=== PATIENT | female | born 1970 | race Caucasian/White ===

== ENCOUNTER 2016-12-07 16:05 | Inpatient (IN) | payer OTHER ==
[2016-12-07] MEDS ORDERED: Albuterol/Ipratropium Neb 3 ML NEB NEB ONE ×2 (16:33→20:09)
[2016-12-07] MEDS ORDERED: SODIUM CHLORIDE 0.9% 3 ML FLUSH FLUSH PRN (16:33)
[2016-12-07] MEDS ORDERED: METHYLPREDNISOLONE 125 MG/2 ML VIAL IV ONE (16:33)
--- NOTE | 2016-12-07 17:05 | EDPRACDOC ---
- General Information Information Source: Patient - History of Present Illness Onset: 1 WK HPI: PT WITH ASTHMA PRESENTS TO ED WITH INCREASE SOB WHEEZING AND COUGH. STATES IS CURRENTLY ON PREDNISONE BUT DOES NOT SEEM TO BE GETTING ANY BETTER. PT ALSO STATES SHE IS HAVING SOME RIGHT SIDED CHEST PAIN THAT RADIATES INTO HER BACK. Shortness of Breath: Mild Relevant History: Reports: Asthma Cough: Reports: Non-productive Rhinorrhea: Reports: None Ear Symptoms: Reports: None SOB Worsens with: Reports: Coughing SOB Improves with: Reports: Nothing Associated Signs and symptoms: Reports: Cough, Other (WHEEZING ) <Connie Barbosa - Last Filed: 12/07/16 18:10> <Danyelle Moss - Last Filed: 12/07/16 21:17> - General Information Chief Complaint: Dyspnea/Resp distress Stated Complaint: DIFFICULTY BREATHING Time Seen by Provider: 12/07/16 16:32 Home Medications: Home Medications Albuterol/Ipratropium Neb [Duoneb] 3 ml NEB Q6H PRN #1 box 01/11/15 Omeprazole [Prilosec] 20 mg PO DAILY 06/20/15 Albuterol Sulfate [Proventil Hfa] 2 puff INH Q2H PRN #1 inhaler 07/28/15 Fluticasone Propionate [Flovent Hfa-110] 2 puff INH RTBID #1 inhaler 07/28/15 Ipratropium/Albuterol Sulfate [Combivent Respimat] 1 puff INH RTQ6 #1 inhaler Prednisone [Sterapred DS 10 mg/12 day pack] 48 tab PO DIR #1 pack 09/03/15 Allergies/Adverse Reactions: Allergies Allergy/AdvReac Type Severity Reaction Status Date / Time Sulfa (Sulfonamide Allergy Hives* Verified 12/07/16 16:10 Antibiotics) ED Past Medical History - History Reviewed Yes Nurses notes reviewed and agree except as marked Travel Outside of [place] in the Last 3 Months?: No - Patient Medical History Cardiac History: Reports: Heart Attack (7yrs ago) Respiratory History: Reports: Asthma, COPD (possible diagnosis.), Pneumonia GI/ History: Reports: Gastroesophageal Reflux (Irritable bowel. Mild gastritis EGD 2005. Dr. Alan.). Denies: Ulcer, Diverticulosis (Colonoscopy 2004: polyps removed. Dr. Alan.) Psychological History: Denies: Depression, Substance Use Disorder Systemic History: Reports: Cancer (Melanoma in past.) Surgical History: Reports: Other (Tubal ligation. Colonoscopy and EGD by Dr. Alan.). Denies: Hysterectomy - Family Medical History Reports: Diabetes (MGM, brother), Cancer (Father: prostate. MGM: breast cancer) , Cardiac Disorders (DAD), Respiratory Disorders (Brother: COPD, smoker, on home vent now.) - Social Medical History Smoking Status: Heavy tobacco smoker (5 or more cigarettes/day or daily pipe/ cigar) Social History: Denies: Substance Use Disorder ETOH: None Substance Abuse: None Lives With: Other Lives In: Home <Connie Barbosa - Last Filed: 12/07/16 18:10> EDM Review of Systems - Review of Systems ROS Negative Except as Marked: Yes All systems reviewed and were negative except as marked Respiratory: Cough, Shortness of Breath, Wheezing <Connie Barbosa - Last Filed: 12/07/16 18:10> - Physical Exam Constitutional: No apparent distress, Alert (Awake) Oriented to: Time, Person, Place Last recorded Vital Signs: Last Vital Signs Temp 98.2 F 12/07/16 16:07 Pulse 95 12/07/16 16:10 Resp 18 12/07/16 16:26 BP 105/72 12/07/16 16:10 Pulse Ox 95 12/07/16 16:10 Oxygen Pulse Oxygen Saturation 95 O2 Device Room Air Oxygen Flow Rate Fraction of Inspired Oxygen ( FIO2) - HEENT Head: Normal ( normocephalic) Eye Exam: Normal (PERRL, EOMI, Sclera white) Oropharynx: Normal (Pharynx:Moist without exudate,Gums-no swelling) Tympanic Membrane: Normal ENT EAC: Normal TMJ: Normal Nose: No Symptoms Reported (septum midline) Neck: Normal (FROM, trachea at midline) - Respiratory/Cardiovascular Respiratory: Diminished, Wheezes (BILATERAL) Cardiovascular: Tachycardia - GI Auscultation: Normal (NABS) Palpation: Normal (Soft,No rebound or guarding, non distended) Tenderness: Non tender Owens's Sign: Negative - Bladder: Normal - Musculoskeletal Back: Normal (Non-Tender) Extremities: Normal (Normal tone, Pulses 2+ No cyanosis or edema, FROM) - Integumentary Skin: Normal, Warm, Dry Lymphatics: Normal (no adenopathy) - Neurologic Memory Impaired: Normal Motor Function: Normal (Normal tone, Pulses 2+ No cyanosis or edema, FROM) Cranial Nerve: Normal (CN II-X11 intact sensation, strength 5/5) Cerebellar: Normal Mood Description: Normal Thought: Coherent Perception: Normal <Connie Barbosa - Last Filed: 12/07/16 18:10> - Physical Exam Last recorded Vital Signs: Last Vital Signs Temp 98.2 F 12/07/16 16:07 Pulse 95 12/07/16 16:10 Resp 18 12/07/16 16:26 BP 105/72 12/07/16 16:10 Pulse Ox 95 12/07/16 16:10 Oxygen Pulse Oxygen Saturation 95 O2 Device Room Air Oxygen Flow Rate Fraction of Inspired Oxygen ( FIO2) <Danyelle Moss - Last Filed: 12/07/16 21:17> ED SOB MDM - Differential Diagnosis Differential Diagnosis: Asthma, Pnuemonia, Other (BRONCHITIS) - Results Result Diagrams: 12/07/16 17:00 12/07/16 17:00 - Diagnostic Imaging CXR Image interpreted by: MLP Diagnostic Imaging Comments: SUSPECTED RIGHT SIDED PNEUMOTHORAX APPROX 20-30%. <Connie Barbosa - Last Filed: 12/07/16 18:10> - Re-evaluation Re-evaluation 2 Re-evaluation Time: 18:36 Re-evaluation: CURRENTLY ON 6L NC. PT DOING WELL, NO SIGNIF PAIN, NO RESP DISTRESS. Temperature: 98.2 F (12/07/16 16:07) HR: 95 (12/07/16 16:10)RR: 18 (12/07/16 16: 26) BP: 105/72 (12/07/16 16:10)Pulse Ox: 95 (12/07/16 16:10) - Results Result Diagrams: 12/07/16 17:00 12/07/16 17:00 Results: WBC 13.6 xk/uL (3.8-10.8) H 12/07/16 17:00 RBC 5.11 xM/uL (4.20-5.40) 12/07/16 17:00 Hgb 15.3 g/dL (12.0-16.0) 12/07/16 17:00 Hct 45.6 % (36-47) 12/07/16 17:00 MCV 89 fL (81-99) 12/07/16 17:00 MCH 29.9 pg (27-32) 12/07/16 17:00 MCHC 33.5 g/dl (33-36) 12/07/16 17:00 RDW 13.9 % (11.5-14.5) 12/07/16 17:00 Plt Count 480 xk/uL (130-400) H 12/07/16 17:00 MPV 7.7 fL (7.4-10.4) 12/07/16 17:00 Sodium 141 mEq/L (137-146) 12/07/16 17:00 Potassium 3.8 mEq/L (3.5-5.1) 12/07/16 17:00 Chloride 107 mEq/L (98-107) 12/07/16 17:00 Carbon Dioxide 26 mMOL/L (22-33) 12/07/16 17:00 Anion Gap 12 mEq/L (8-16) 12/07/16 17:00 BUN 14 MG/DL (7-17) 12/07/16 17:00 Creatinine 0.60 MG/DL (0.52-1.04) 12/07/16 17:00 Estimated GFR (MDRD) > 60 mL/min (>=60) 12/07/16 17:00 Glucose 126 mg/dL (70-99) H 12/07/16 17:00 Calculated Osmolality 274 MOs/Kg (270-290) 12/07/16 17:00 Calcium 9.9 MG/DL (8.4-10.2) 12/07/16 17:00 Corrected Calcium 10.0 MG/DL (8.4-10.2) 12/07/16 17:00 Total Bilirubin 0.8 MG/DL (0.2-1.3) 12/07/16 17:00 AST 16 IU/L (14-36) 12/07/16 17:00 ALT 29 IU/L (9-52) 12/07/16 17:00 Alkaline Phosphatase 95 IU/L (38-126) 12/07/16 17:00 Total Protein 7.2 G/DL (6.3-8.2) 12/07/16 17:00 Albumin 3.9 G/DL (3.5-5.0) 12/07/16 17:00 Urine Color Yellow 12/07/16 16:13 Urine Clarity Sl cldy 12/07/16 16:13 Urine pH 8.0 (5.0-8.0) 12/07/16 16:13 Ur Specific [place] 1.005 (1.003-1.035) 12/07/16 16:13 Urine Protein Neg (NEG/TRACE) 12/07/16 16:13 Urine Glucose (UA) Neg (NEGATIVE) 12/07/16 16:13 Urine Ketones Neg (NEGATIVE) 12/07/16 16:13 Urine Occult Blood Neg (NEG/TRACE) 12/07/16 16:13 Urine Nitrite Neg (NEGATIVE) 12/07/16 16:13 Urine Bilirubin Neg (NEGATIVE) 12/07/16 16:13 Urine Urobilinogen <2.0 MG/DL (0-1) 12/07/16 16:13 Ur Leukocyte Esterase Neg (NEGATIVE) 12/07/16 16:13 Urine RBC 0-2 (0-5) 12/07/16 16:13 Urine WBC 2-5 (0-5) 12/07/16 16:13 Ur Epithelial Cells 3+ 12/07/16 16:13 Urine Bacteria Few (NEG/FEW) 12/07/16 16:13 Lab Results 12/07/16 12/07/16 12/07/16 17:00 17:00 16:13 WBC 13.6 H RBC 5.11 Hgb 15.3 Hct 45.6 MCV 89 MCH 29.9 MCHC 33.5 RDW 13.9 Plt Count 480 H MPV 7.7 Sodium 141 Potassium 3.8 Chloride 107 Carbon Dioxide 26 Anion Gap 12 BUN 14 Creatinine 0.60 Estimated GFR (MDRD) > 60 Glucose 126 H Calculated Osmolality 274 Calcium 9.9 Corrected Calcium 10.0 Total Bilirubin 0.8 AST 16 ALT 29 Alkaline Phosphatase 95 Total Protein 7.2 Albumin 3.9 Urine Color Yellow Urine Clarity Sl cldy Urine pH 8.0 Ur Specific [place] 1.005 Urine Protein Neg Urine Glucose (UA) Neg Urine Ketones Neg Urine Occult Blood Neg Urine Nitrite Neg Urine Bilirubin Neg Urine Urobilinogen <2.0 Ur Leukocyte Esterase Neg Urine RBC 0-2 Urine WBC 2-5 Ur Epithelial Cells 3+ Urine Bacteria Few <Danyelle Moss N - Last Filed: 12/07/16 21:17> <Connie Barbosa - Last Filed: 12/07/16 18:10> - Departure Education/Counseling Given To: Patient, Family Member Education/Counseling Given Regarding: Diagnosis, Treatment, Prognosis - Physician Consulted Surgery Time Called: 18:34 Provider Called: Yousif Peres Time [place] Returned Call: 18:34 (WE AGREE, PT STABLE CURRENTLY. WILL GET CT CHEST FOR FURTHER EVAL, CONSIDER MANAGEMENT NONOPERATIVE) <MossDanyelle - Last Filed: 12/07/16 21:17> - Departure Final Diagnosis: Spontaneous pneumothorax Instructions: Spontaneous Pneumothorax (ED) Referrals: Inna Johnson MD [Primary Care Provider] - One Week Prescriptions: No Action Albuterol/Ipratropium Neb [Duoneb] 3 ml NEB Q6H PRN #1 box PRN Reason: Shortness Of Breath Omeprazole [Prilosec] 20 mg PO DAILY Ipratropium/Albuterol Sulfate [Combivent Respimat] 1 puff INH RTQ6 #1 inhaler Fluticasone Propionate [Flovent Hfa-110] 2 puff INH RTBID #1 inhaler Albuterol Sulfate [Proventil Hfa] 2 puff INH Q2H PRN #1 inhaler PRN Reason: Wheezing Prednisone [Sterapred DS 10 mg/12 day pack] 48 tab PO DIR #1 pack ED-Moderate Sedation Procedure - Procedure Indication: TUBE THORACOSTOMY Informed of risks, benefits and alternatives described.: Yes Informed Consent Signed: Written ASA Status: 2 (ASTHMA, MILD TO MOD LEVEL) Physician Performing Procedure: Yes Physician Providing Sedation: Ajay - Patient Information Patient Age: 46 History and Physical Completed: Yes - Oxygen Oxygen Delivery Method: Nasal Cannula - Chemical Engineering Technologist Chemical Engineering Technologist: Yes EKG Rhythm: Sinus Rhythm - Medications Dose #1 Administration Time: 20:40 Medication Given: Versed Dose Given: 4 Medication Unit: mg Route: IV Patient Reaction: Awake Dose #2 Administration Time: 20:45 Medication Given: Ketamine Dose Given: 85 Medication Unit: mg Route: IV Patient Reaction: Awake Dose #3 Administration Time: 20:50 Medication Given: Fentanyl Dose Given: 100 Medication Unit: mcg Route: IV Patient Reaction: Arousable to Voice Dose #4 Administration Time: 20:48 Medication Given: Versed Dose Given: 4 Medication Unit: mg Route: IV Patient Reaction: Arousable to Voice Dose #5 Administration Time: 20:52 Medication Given: Versed Dose Given: 4 Medication Unit: mg Route: IV Patient Reaction: Arousable to Voice, Arousable to Touch - Last Dose of Medication Last Medication Time: 20:52 Nurse Notes: CHEST XRAY COMPLETE FOR TUBE PLACEMENT, DR STRICKLAND AT BS TO VERIFY, CHEST TUBE PLACE ON SUCTION AT 20 - Assessment Skin: Warm Abdomen: Soft Side Rails Up x 2: Yes <Danyelle Moss N - Last Filed: 12/07/16 21:17>
[2016-12-07 17:09] LABS: LEUKOCYTES/URINE NEG (NEGATIVE); NITRITE/URINE NEG (NEGATIVE); RBC/URINE 0-2 (0-5); URINE OCCULT BLOOD NEG (NEG/TRACE)
[2016-12-07 17:11] LABS: MPV 7.7 fL (7.4-10.4)
[2016-12-07 17:20] LABS: BLOOD UREA NITROGEN 14 MG/DL (7-17); CALCIUM 9.9 MG/DL (8.4-10.2); CALCULATED OSMOLALITY 274 MOs/Kg (270-290); CHLORIDE 107 mEq/L (98-107); GLUCOSE 126 mg/dL (70-99); SODIUM LEVEL 141 mEq/L (137-146); TOTAL PROTEIN 7.2 G/DL (6.3-8.2)
--- NOTE | 2016-12-07 18:04 | DIRPT ---
CLINICAL DATA: Cough, short of breath, and wheezing EXAM: CHEST 2 VIEW COMPARISON: Radiograph 11/29/2016 FINDINGS: Normal cardiac silhouette. There is a a moderate size RIGHT pneumothorax along the RIGHT lateral chest wall. The pneumothorax involves approximately 30% of the hemithorax volume. The the RIGHT heart border is not as prominent as comparison radiograph which could indicate a component of tension pneumothorax. The trachea is midline and not shifted. LEFT lung is clear. IMPRESSION: Moderate size RIGHT pneumothorax. Cannot exclude a mild component of tension. Critical Value/emergent results were called by telephone at the time of interpretation on 12/07/2016 at 6:[address] Connie ARRINGTON, who verbally acknowledged these results. Electronically Signed By: Ras Radford M.D. On: 12/07/2016 18:01
[2016-12-07] MEDS ORDERED: LORAZEPAM 2 MG/ML VIAL IV ONE (18:47)
[2016-12-07] MEDS ORDERED: MIDAZOLAM 5 MG/5 ML VIAL ONE (19:22)
[2016-12-07] MEDS ORDERED: FENTANYL 100 MCG/2 ML VIAL ONE (19:22)
[2016-12-07] MEDS ORDERED: KETAMINE 50 MG/ML SYRINGE ONE (19:23)
[2016-12-07] MEDS ORDERED: NALOXONE 2 MG/2 ML SYRINGE ONE (19:24)
[2016-12-07] MEDS ORDERED: Lidocaine 2%-Epinephrine 1:100,000 20ml vial ONE (19:24)
[2016-12-07] MEDS ORDERED: FLUMAZENIL 0.1 MG/ML INJ 5 ML VIAL IV ONE (19:24)
[2016-12-07 19:31] LABS: SEG NEUTROPHIL 85 % (45-76)
--- NOTE | 2016-12-07 19:59 | DIRPT ---
CLINICAL DATA: Evaluate pneumothorax. Shortness of breath for 3 weeks. Follow-up chest x-ray. History of melanoma in 1997. EXAM: CT CHEST WITHOUT CONTRAST TECHNIQUE: Multidetector CT imaging of the chest was performed following the standard protocol without IV contrast. COMPARISON: Chest x-ray 12/07/2016 FINDINGS: Heart: Heart size is normal. No imaged pericardial effusion or significant coronary artery calcifications. Vascular structures: There is mild atherosclerotic calcification of the thoracic aorta. No aneurysm. Mediastinum/thyroid: The visualized portion of the thyroid gland has a normal appearance. No mediastinal, hilar, or axillary adenopathy. Lungs/Airways: Large right-sided pneumothorax again identified. There is mediastinal shift towards the left. Small pleural based plaque is identified at the right hemidiaphragm, measuring 8 mm. There is minimal posterior right lung atelectasis. No suspicious parenchymal nodules identified. There are no pleural effusions. No pulmonary edema or consolidations. Anterior to the right upper lobe there is and air cyst measuring 7.1 cm. Upper abdomen: Gallbladder is present. Chest wall/osseous structures: No suspicious lytic or blastic lesions are identified. IMPRESSION: 1. Right pneumothorax with tension component, shifting the mediastinum towards the left. Pneumothorax estimated to be approximately 50% of lung volume. 2. Single right basilar pleural based plaque or nodule measuring 8 mm. This may represent artifact above the pneumothorax. Followup is recommended. 3. Air cyst in the right pleural space. Critical Value/emergent results were called by telephone at the time of interpretation on 12/07/2016 at 7:[address] FINA FITZGERALD MD, who verbally acknowledged these results. Electronically Signed By: Ashley Baez M.D. On: 12/07/2016 19:56
[2016-12-07] MEDS ORDERED: ALBUTEROL 6.7 GM MDI INH PRN (21:04)
[2016-12-07] MEDS ORDERED: Albuterol/Ipratropium Neb 3 ML NEB NEB PRN (21:04)
--- NOTE | 2016-12-07 21:07 | HISTPHYS ---
- Chief Complaint shortness of breath - History of Present Illness This is a 46 year old female with a history of asthma. She developed shortness of breath and subsequently went to the emergency department. CT scan of the chest demonstrated a right sided pneumothorax. - Medical History Cardiac History: Reports: Heart Attack (7yrs ago) Respiratory History: Reports: Asthma, COPD (possible diagnosis.), Pneumonia GI/ History: Reports: Gastroesophageal Reflux (Irritable bowel. Mild gastritis EGD 2005. Dr. Alan.). Denies: Ulcer, Diverticulosis (Colonoscopy 2004: polyps removed. Dr. Alan.) Systemic History: Reports: Cancer (Melanoma in past.) Psychological History: Denies: Depression, Substance Use Disorder - Surgical History Reports: Other (Tubal ligation. Colonoscopy and EGD by Dr. Alan.). Denies: Hysterectomy - Medictions/Allergies Allergies Sulfa (Sulfonamide Antibiotics) Allergy (Verified 12/07/16 16:10) Hives* Home Medications Albuterol/Ipratropium Neb [Duoneb] 3 ml NEB Q6H PRN #1 box 01/11/15 Omeprazole [Prilosec] 20 mg PO DAILY 06/20/15 Albuterol Sulfate [Proventil Hfa] 2 puff INH Q2H PRN #1 inhaler 07/28/15 Fluticasone Propionate [Flovent Hfa-110] 2 puff INH RTBID #1 inhaler 07/28/15 Ipratropium/Albuterol Sulfate [Combivent Respimat] 1 puff INH RTQ6 #1 inhaler Prednisone [Sterapred DS 10 mg/12 day pack] 48 tab PO DIR #1 pack 09/03/15 - Family History Reports: Diabetes (MGM, brother), Cancer (Father: prostate. MGM: breast cancer) , Cardiac Disorders (DAD), Respiratory Disorders (Brother: COPD, smoker, on home vent now.) - Social History Travel Outside of [place] in the Last 3 Months?: No Lives: With Family Smoking Status: Heavy tobacco smoker (5 or more cigarettes/day or daily pipe/ cigar) (The patient reports smoker for thirty years.) Social History: Denies: Amphetamine Use, Alcohol Use, Barbiturate Use, Benzodiazipine Use, Cocaine Use, Heroin Use, Marijuana Use, Methadone Use, MDMA (Ecstasy) Use, Substance Use Disorder - Review of Systems Yes All systems reviewed and were negative except as marked (twelve systems reviewed with the patient.) - Physical Exam Vital Signs: Initial Vitals Temperature 98.2 F 12/07/16 16:07 Pulse Rate 102 12/07/16 16:07 Respiratory Rate 18 12/07/16 16:07 Blood Pressure 154/79 12/07/16 16:07 Pulse Oxygen Saturation 96 12/07/16 16:07 Constitutional: Alert (Awake, Fully oriented. Normal and appropriate affect.Well appearing. Well nourished.), No apparent distress Oriented to: Time, Person, Place - HEENT Head: Normal (normocephalic, atraumatic.), Other (No cervical lymphadenopathy. No supraclavicular lymphadenopathy. Neck: No palpable mass, supple , trachea midline.) Eye: Normal (pupils equal, reactive to light, and round; EOMI, Sclera white) Oropharynx: Normal (Pharynx: Moist without exudate,Gums-no swelling, No oropharyngeal lesions or erythema, Mucous membranes are dry.) Tympanic Membrane: Normal (no discharge) ENT EAC: Normal (No oropharyngeal lesions or erythema. Mucous membranes are dry. ) TMJ: Normal Nose: No Symptoms Reported (septum midline, Nares patent, without discharge or bleeding.) Respiratory: Diminished (Markedly diminished on the right.), Wheezes ( Expiratory wheezes noted on the left.) Cardiovascular: Normal (RRR , Normal S1, S2. No murmurs, rubs, or gallops. PMI non-displaced. Carotids: no carotid bruits. No bradycardia or tachycardia. DP pulses 2+ bilaterally.) - GI Auscultation: Normal Palpation: Normal (Soft,non distended,nontender. No hepatosplenomegaly.) Tenderness: Non tender (No rebound or guarding) Owens's Sign: Negative Rectal Exam: Deferred - Musculoskeletal Back: Normal (Non-Tender) Extremities: Normal (Normal tone, DP pulses 2+ bilaterally, No cyanosis or edema bilaterally, FROM bilaterally.) - Integumentary Skin: Normal (Clean, dry, and intact. No rashes. No lesions.) Lymphatics: Normal (No cervical lymphadenopathy. No supraclavicular lymphadenopathy.) - Neurologic Memory Impaired: Normal Motor Function: Normal (Motor 5/5 throughout.Normal tone, Pulses 2+ No cyanosis or edema, FROM) Cranial Nerve: Normal (CN II-XII intact sensation, strength 5/5) Cerebellar: Normal (Babinski: toes downgoing bilaterally. Intact Finger to nose. Sensory grossly intact to light touch. Intact rapid alternating movements bilaterally. No pronator drift.) Mood Description: Normal (Fully oriented. Normal and appropriate affect.) Perception: Normal (Normal and appropriate affect.) - Lab Results 12/07/16 17:00 12/07/16 17:00 - Diagnostic Findings Final Report CLINICAL DATA: Evaluate pneumothorax. Shortness of breath for 3 weeks. Follow-up chest x-ray. History of melanoma in 1997. EXAM: CT CHEST WITHOUT CONTRAST TECHNIQUE: Multidetector CT imaging of the chest was performed following the standard protocol without IV contrast. COMPARISON: Chest x-ray 12/07/2016 FINDINGS: Heart: Heart size is normal. No imaged pericardial effusion or significant coronary artery calcifications. Vascular structures: There is mild atherosclerotic calcification of the thoracic aorta. No aneurysm. Mediastinum/thyroid: The visualized portion of the thyroid gland has a normal appearance. No mediastinal, hilar, or axillary adenopathy. Lungs/Airways: Large right-sided pneumothorax again identified. There is mediastinal shift towards the left. Small pleural based plaque is identified at the right hemidiaphragm, measuring 8 mm. There is minimal posterior right lung atelectasis. No suspicious parenchymal nodules identified. There are no pleural effusions. No pulmonary edema or consolidations. Anterior to the right upper lobe there is and air cyst measuring 7.1 cm. Upper abdomen: Gallbladder is present. Chest wall/osseous structures: No suspicious lytic or blastic lesions are identified. IMPRESSION: 1. Right pneumothorax with tension component, shifting the mediastinum towards the left. Pneumothorax estimated to be approximately 50% of lung volume. 2. Single right basilar pleural based plaque or nodule measuring 8 mm. This may represent artifact above the pneumothorax. Followup is recommended. 3. Air cyst in the right pleural space. Critical Value/emergent results were called by telephone at the time of interpretation on 12/07/2016 at 7:[address] FINA FITZGERALD MD, who verbally acknowledged these results. Electronically Signed By: Ashley Baez M.D. On: 12/07/2016 19:56 - Assessment/Plan (1) Spontaneous pneumothorax J93.83 - OTHER PNEUMOTHORAX Acute Present on Admission: Yes Comment: We will plan for right tube thoracostomy. The indications, benefits and risks associated with the procedure were discussed with the patient. All questions were answered. Informed consent was obtained. (2) Tobacco abuse Z72.0 - TOBACCO USE Chronic Present on Admission: Yes Comment: Tobacco cessation was recommended. (3) COPD exacerbation J44.1 - CHRONIC OBSTRUCTIVE PULMONARY DISEASE W (ACUTE) EXACERBATION Chronic Present on Admission: Yes Comment: The patient will be started on home medications and carefully monitored. Case Care Discussed with: Patient
--- NOTE | 2016-12-07 21:08 | DIRPT ---
CLINICAL DATA: Chest tube placement. EXAM: PORTABLE CHEST 1 VIEW COMPARISON: 12/07/2016 FINDINGS: Right-sided chest tube has been placed. Right-sided pneumothorax is significantly decreased. Small basilar component is suspected. There is minimal right lower lobe atelectasis. Mediastinum is now midline. There is minimal left base atelectasis. Small amount of subcutaneous gas identified. IMPRESSION: 1. Interval placement of right-sided chest tube. 2. Significantly smaller right-sided pneumothorax. 3. Bibasilar opacities. Electronically Signed By: Ashley Baez M.D. On: 12/07/2016 21:05
[2016-12-07] MEDS ORDERED: SIMETHICONE 80 MG TAB PO PRN (21:13)
[2016-12-07] MEDS ORDERED: IBUPROFEN 600 MG TAB PO PRN (21:13)
[2016-12-07] MEDS ORDERED: ACETAMINOPHEN 650 MG SUPP PR PRN (21:13)
[2016-12-07] MEDS ORDERED: PROMETHAZINE 25 MG/ML VIAL IV PRN (21:13)
[2016-12-07] MEDS ORDERED: ONDANSETRON HCL 4 MG/2 ML VIAL IV PRN (21:13)
[2016-12-07] MEDS ORDERED: ACETAMINOPHEN 325 MG/TAB TABLET PO PRN (21:13)
[2016-12-07] MEDS ORDERED: DIPHENHYDRAMINE 25 MG CAP PO PRN (21:13)
--- NOTE | 2016-12-07 21:13 | HIMOPRPT ---
DATE OF PROCEDURE: 12/07/16 PREOPERATIVE DIAGNOSIS: Right Spontaneous pneumothorax POSTOPERATIVE DIAGNOSIS: Right Spontaneous pneumothorax PROCEDURE: Insertion of 24-Algerian tube thoracostomy to 10 cm. SURGEON: Yousif Peres DO. ANESTHESIA: Intravenous sedation per Dr. Moss in the emergency department and 1% lidocaine local anesthesia. DRAINS: 24 marshallese right tube thoracostomy COMPLICATIONS: None PATIENT CONDITION: Stable ESTIMATED BLOOD LOSS: 1 ml. INDICATIONS: This is a 46-year-old F with spontaneous pneumothorax, requiring a tube thoracostomy. Risks were discussed include, but not limited to bleeding, infection, tube migration, need for emergent thoracotomy possibly at [facility]. All questions were answered and informed consent was obtained FINDINGS: Stat portable chest x-ray postprocedure shows the right tube thoracostomy in excellent position at the apex of lung with near complete resolution of the pneumothorax. PROCEDURE IN DETAIL: SAMMY JOLLEY was placed in modified seated position, with slightly recumbent and head of the bed approximately at 35 degrees angle elevated. The chest was then sterilely prepped and draped in usual fashion and infiltrated with local anesthetic. Transverse incision was made at the 7th intercostal space, and the 24-Algerian chest tube was tunneled over the 5th intercostal space, and advanced with no resistance. It was sewn in with 0 silk suture ligature x 2. Dressing was applied. Stat chest x-ray was obtained with findings as described above. The patient was placed back in seated position. Vital signs were stable.
[2016-12-07] MEDS ORDERED: Cefazolin 2gm/50 ml D5W 2 GM/50 ML RTU IV ONE (22:00)
[2016-12-07] MEDS ORDERED: PREDNISONE 10 MG PO SCH ×2 (22:00)
[2016-12-07] MEDS: SODIUM CHLORIDE 0.9% 3 ML FLUSH FLUSH SCH (22:50)
[2016-12-07] MEDS: LR 1,000 ML IV SCH (22:52)
[2016-12-07] MEDS: HYDROmorphone 50 ML IV PRN (23:00)
[2016-12-07] MEDS ORDERED: Vaccine Screening Complete SCH (23:00)
[2016-12-07] MEDS: PREDNISONE 10 MG PO SCH (23:17)
[2016-12-07] MEDS: NICOTINE 14 MG PATCH TOP SCH (23:19)
[2016-12-08] MEDS: Albuterol/Ipratropium Neb 3 ML NEB NEB SCH ×4 (01:28→19:37)
[2016-12-08] MEDS ORDERED: [UNRECOGNIZED DRUG - OTHER] INH SCH (02:00)
[2016-12-08] MEDS ORDERED: ALBUTEROL SULFATE INH SCH (02:00)
[2016-12-08] MEDS ORDERED: IPRATROPIUM INH SCH (02:00)
[2016-12-08] MEDS: SODIUM CHLORIDE 0.9% 3 ML FLUSH FLUSH SCH ×2 (03:07→12:56)
[2016-12-08] MEDS: PANTOPRAZOLE 40 MG TAB PO SCH (04:08)
[2016-12-08] MEDS: BUDESONIDE 0.5 MG NEB NEB SCH ×2 (06:27→19:38)
[2016-12-08] MEDS: PREDNISONE 10 MG PO SCH ×4 (07:48→22:04)
[2016-12-08] MEDS ORDERED: FLUTICASONE INH SCH (08:00)
--- NOTE | 2016-12-08 08:10 | DIRPT ---
CLINICAL DATA: RIGHT-sided chest tube EXAM: PORTABLE CHEST 1 VIEW COMPARISON: 12/07/2016 FINDINGS: Normal cardiac silhouette. RIGHT chest tube in place without pneumothorax. There is improved aeration to the RIGHT lung base with mild persistent atelectasis. Improvement in chest wall gas seen on prior. IMPRESSION: 1. RIGHT chest tube in place without pneumothorax. 2. Improvement in RIGHT lower lobe atelectasis. Electronically Signed By: Ras Radford M.D. On: 12/08/2016 08:08
[2016-12-08] MEDS ORDERED: Non-Formulary Medication ITEM (Omeprazole 20 MG) PO SCH (09:00)
--- NOTE | 2016-12-08 12:07 | PCM.SURGRO ---
- Subjective Chief Complaint: [facility] Day #: 2 (right spontaneous pneumothorax) Post Op Day: 1 (right tube thoracostomy) Patient: Reports: Feels better (The patient states that she feels much better and can now breathe. She reports that she is hungry.), Voiding without difficulty, Afebrile. Denies: Nausea, Vomiting, Shortness of breath - Objective / Physical Exam Vital Signs: Temperature: 97.5 F (12/08/16 10:10) HR: 69 (12/08/16 10:10)RR: 18 (12/08/16 11: 27) BP: 120/76 (12/08/16 10:10)Pulse Ox: 93 (12/08/16 10:10) General: Alert, Oriented x3, Cooperative, No acute distress HEENT: Normal Respiratory: Normal - CTA, Other (Chest tube is patent. Small air leak is still present. Dressing intact.). negative: Wheezes Cardiovascular: Regular rate and rhythm Gastrointestinal: Soft, Bowel Sounds. negative: Distended, Tender Extremities: negative: Swelling, Edema Psych/Mental Status: Appropriate, Normal Affect, Cooperative. negative: Agitated, Anxious Neurological: Normal speech Skin: Warm,Dry and Intact, No rashes Lymphatics: Normal Laboratory/Diagnostics Reviewed: Final Report CLINICAL DATA: RIGHT-sided chest tube EXAM: PORTABLE CHEST 1 VIEW COMPARISON: 12/07/2016 FINDINGS: Normal cardiac silhouette. RIGHT chest tube in place without pneumothorax. There is improved aeration to the RIGHT lung base with mild persistent atelectasis. Improvement in chest wall gas seen on prior. IMPRESSION: 1. RIGHT chest tube in place without pneumothorax. 2. Improvement in RIGHT lower lobe atelectasis. Electronically Signed By: Ras Radford M.D. On: 12/08/2016 08:08 - Assessment and Plan (1) Spontaneous pneumothorax Acute J93.83 - OTHER PNEUMOTHORAX Present on Admission: Yes Comment/Plan: Chest x ray is improved today. The patient feels much better. There continues to be an air leak. We will continue -20 cm H20 suction to the right tube thoracostomy. If the air leak persists, we will plan for transfer to a tertiary care center for consideration for VATS. I discussed the treatment plan at length with the patient and the patient's mother and father. All questions were answered. (2) Tobacco abuse Chronic Z72.0 - TOBACCO USE Present on Admission: Yes Comment/Plan: This will increase the risk of periprocedural complications. (3) COPD exacerbation Chronic J44.1 - CHRONIC OBSTRUCTIVE PULMONARY DISEASE W (ACUTE) EXACERBATION Present on Admission: Yes Comment/Plan: We will continue home medications. - Review of Systems Yes All systems reviewed and were negative except as marked (twelve systems reviewed with the patient)
[2016-12-08] MEDS: LR 1,000 ML IV SCH ×2 (12:55→22:03)
[2016-12-08] MEDS: NICOTINE 14 MG PATCH TOP SCH (22:04)
[2016-12-09] MEDS: Albuterol/Ipratropium Neb 3 ML NEB NEB SCH ×4 (01:02→20:08)
[2016-12-09 05:12] VITALS: BMI 32.4
[2016-12-09] MEDS: SODIUM CHLORIDE 0.9% 3 ML FLUSH FLUSH SCH ×2 (06:15→18:00)
[2016-12-09] MEDS: PANTOPRAZOLE 40 MG TAB PO SCH (06:21)
[2016-12-09] MEDS: BUDESONIDE 0.5 MG NEB NEB SCH ×2 (08:23→20:09)
--- NOTE | 2016-12-09 08:25 | DIRPT ---
CLINICAL DATA: Right chest tube. EXAM: PORTABLE CHEST 1 VIEW COMPARISON: 12/08/2016. FINDINGS: Chest tube tip appears to be in the right chest wall. a Small right-sided pneumothorax noted. Low lung volumes with basilar atelectasis. Heart size normal. No pleural effusion. Right chest wall subcutaneous emphysema . IMPRESSION: Chest tube tip appears to be in the right chest sidewall . Small right pneumothorax noted on today's exam. Low lung volumes with bibasilar atelectasis. Critical Value/emergent results were called by telephone at the time of interpretation on 12/09/2016 at 8:16 am to nurse Angulo, who verbally acknowledged these results. Electronically Signed By: Azar Londono On: 12/09/2016 08:23
[2016-12-09] MEDS: PREDNISONE 10 MG PO SCH ×4 (08:43→21:09)
[2016-12-09] MEDS ORDERED: KETAMINE 50 MG/ML SYRINGE IV ONE (10:00)
[2016-12-09] MEDS ORDERED: FENTANYL 100 MCG/2 ML VIAL IV ONE (10:00)
[2016-12-09] MEDS ORDERED: MIDAZOLAM 2 MG/2 ML VIAL IV ONE (10:00)
--- NOTE | 2016-12-09 10:08 | PCM.SURGRO ---
- Subjective Chief Complaint: cough Post Op Day: 1 (right tube thoracostomy) Patient: Reports: Feels better (The patient reports that she feels better but feels a little tight. She states that the tightness clears when she coughs.), Tolerating Regular Diet, Voiding without difficulty, Flatus, No Bowel Movement, Afebrile. Denies: Shortness of breath, Ambulating - Objective / Physical Exam Vital Signs: Temperature: 98.2 F (12/09/16 05:07) HR: 82 (12/09/16 05:07)RR: 18 (12/09/16 07: 15) BP: 146/80 (12/09/16 05:07)Pulse Ox: 94 (12/09/16 08:23) General: Alert, Oriented x3, Cooperative, No acute distress HEENT: Normal Respiratory: Normal - CTA, Diminished (diminished at the right base.), Other ( Chest tube is nearly out of the skin. Sutures are in place. The dressing is intact. Air leak noted.) Cardiovascular: Regular rate and rhythm Gastrointestinal: Soft, Bowel Sounds. negative: Distended, Tender Back: Normal Extremities: negative: Swelling, Edema Psych/Mental Status: Appropriate, Normal Affect, Cooperative. negative: Agitated, Anxious - Assessment and Plan (1) Spontaneous pneumothorax Acute J93.83 - OTHER PNEUMOTHORAX Present on Admission: Yes Comment/Plan: Chest x ray personally reviewed. We will plan for repositioning/reinsertion of the right chest tube. I discussed the indications, benefits and risks with the patient and the patient's daughter. All questions were answered. (2) Tobacco abuse Chronic Z72.0 - TOBACCO USE Present on Admission: Yes (3) COPD exacerbation Chronic J44.1 - CHRONIC OBSTRUCTIVE PULMONARY DISEASE W (ACUTE) EXACERBATION Present on Admission: Yes
[2016-12-09] MEDS ORDERED: ALBUTEROL 6.7 GM MDI INH SCH (11:05)
[2016-12-09] MEDS ORDERED: LABETALOL 20 MG/4 ML SYRINGE IV PRN (14:53)
[2016-12-09] MEDS ORDERED: MEPERIDINE 25 MG/ML TUBEX IV PRN (14:53)
[2016-12-09] MEDS ORDERED: FENTANYL 100 MCG/2 ML VIAL IV PRN ×2 (14:53)
[2016-12-09] MEDS ORDERED: HYDROmorphone 1 MG INJECTION IV PRN ×2 (14:53)
[2016-12-09] MEDS ORDERED: ONDANSETRON HCL 4 MG ODT TAB PO PRN (14:53)
[2016-12-09] MEDS ORDERED: ONDANSETRON HCL 4 MG/2 ML VIAL IV PRN (14:53)
[2016-12-09] MEDS ORDERED: hydrALAZINE 20 MG/ML VIAL IV PRN (14:53)
[2016-12-09] MEDS: LR 1,000 ML IV SCH (15:18)
--- NOTE | 2016-12-09 15:31 | HIM.ANES ---
Anesthesia Evaluation & Plan - Focused Review of Systems Now: No (TUBAL) Cardiac History: Yes: Hx Heart Attack (7yrs ago), Hx Cardiac Disorders HEENT: Yes: Hx Vision Problem, Other HEENT Problems Respiratory: Yes: Hx Asthma, Hx Chronic Obstructive Pulmonary Disease (COPD) ( possible diagnosis.), Hx Snoring, Hx Recent Cold/Flu, Hx Pneumonia Gastrointestinal: Yes: Hx Gastroesophageal Reflux Disease, Hx Gastrointestinal Disorders, Hx Colonoscopy, Hx Endoscopy Comment Only: Hx Diverticulosis (Colonoscopy 2004: polyps removed. Dr. Alan. ) Neurological/Musculoskeletal: No: Hx Neurological Disorders Psychological: No Hx Depression, No Hx Mental/Emotional Disorders Blood/Autoimmune: Yes: Hx Blood Transfusions () Smoking Status: Heavy tobacco smoker (5 or more cigarettes/day or daily pipe/ cigar) Past Social History: Denies: Amphetamine Use, Alcohol Use, Barbiturate Use, Benzodiazipine Use, Cocaine Use, Heroin Use, Marijuana Use, Methadone Use, MDMA (Ecstasy) Use, Substance Use Disorder Alcohol use: None Surgical History: Yes: Other (Tubal ligation. Colonoscopy and EGD by Dr. Alan.) - Focused Physical Exam NPO since: 0800 Mallampati: Class II Thyromental Distance: Greater than 3 Neck: Full Range of Motion Cardiovascular/Chest: Normal Respiratory: Decreased breath sounds Any problems with anesthesia, including nausea and vomiting?: No Beta Saul given (if appropriate): N/A Other: Problem List Problem Status Onset Spontaneous pneumothorax Acute Acute bronchitis Acute Hypoxia Acute COPD exacerbation Chronic Tobacco abuse Chronic Allergies Allergy/AdvReac Type Severity Reaction Status Date / Time Sulfa (Sulfonamide Allergy Hives* Verified 12/07/16 16:10 Antibiotics) Home Medications Medication Instructions Recorded Last Taken Type Albuterol/Ipratropium Neb [Duoneb] 3 ml NEB Q6H PRN #1 box 01/11/15 12/07/16 Rx Omeprazole [Prilosec] 20 mg PO DAILY 06/20/15 12/07/16 History Albuterol Sulfate [Proventil Hfa] 2 puff INH Q2H PRN #1 inhaler 07/28/15 Rx Prednisone [Sterapred DS 10 mg/12 48 tab PO DIR #1 pack 09/03/15 12/07/16 Rx day pack] Fluticasone/Vilanterol [Breo 1 DAILY 12/07/16 12/07/16 11:00 History Ellipta 200-25 Mcg INH] Height and Weight Patient's height 5 ft 4 in Patient's weight 85.82 kg Weight (Calculated Kilograms) 85.820 BMI 32.4 Vital Signs Temperature 98.2 F 12/09/16 14:48 Pulse Rate 92 12/09/16 14:48 Respiratory Rate 18 12/09/16 14:48 Blood Pressure 125/91 12/09/16 14:48 Pulse Oxygen Saturation 93 12/09/16 14:48 - Anesthetic Plan Anesthesia Type: MAC ASA Class: 3 -: I have examined this patient and reviewed the medical record. The patient has been assessed prior to anesthesia. Risks and benefits of anesthesia and anesthetic technique options have been discussed and all questions answered. The patient accepts the risk and desires me to proceed with the planned anesthetic.
--- NOTE | 2016-12-09 15:48 | DIRPT ---
CLINICAL DATA: Chest tube removal EXAM: PORTABLE CHEST 1 VIEW COMPARISON: Study earlier today. FINDINGS: There is an enlarging right pneumothorax and increasing subcutaneous emphysema. Right pneumothorax is now moderate in size, approximately 30%. Left lung is clear. No evidence of tension. There is right base atelectasis. Heart is normal size. IMPRESSION: Enlarging moderate-sized right pneumothorax, at least 30%. These results will be called to the ordering clinician or financial service representative by the [employer], and communication documented in the PACS or [employer] Dashboard. Electronically Signed By: Chris Huffman M.D. On: 12/09/2016 15:45
[2016-12-09] MEDS ORDERED: CEFAZOLIN 1 GM VIAL ONE (15:51)
[2016-12-09] MEDS ORDERED: LIDOCAINE 1% 30 ML VIAL (PRESERVATIVE FREE) ONE (15:53)
[2016-12-09] MEDS ORDERED: BUPIVACAINE 0.5% 30 ML VIAL ONE (15:54)
[2016-12-09] MEDS ORDERED: CEFAZOLIN 1 GM VIAL IV ONE (16:00)
[2016-12-09] MEDS ORDERED: [UNRECOGNIZED DRUG - OTHER] TOP ONE (16:18)
--- NOTE | 2016-12-09 16:27 | HIMOPRPT ---
DATE OF PROCEDURE: 12/09/16 PREOPERATIVE DIAGNOSIS: Spontaneous right pneumothorax POSTOPERATIVE DIAGNOSIS: Spontaneous right pneumothorax PROCEDURE: Insertion of right tube thoracostomy 28-Burmese to 18 centimeters with fluoroscopic guidance. SURGEON: Yousif Peres DO. ANESTHESIA: Monitored anesthesia care with local anesthetic. ANESTHESIOLOGIST: Dr. Pete Denise MD DRAINS: A 28-Burmese tube thoracostomy. COMPLICATIONS: Stat portable chest x-ray pending at time of this report PATIENT CONDITION: Guarded. ESTIMATED BLOOD LOSS: 1 mL. INDICATIONS: This is a 46-year-old female with spontaneous right pneumothorax. Despite suture fixation, the previously placed right tube thoracostomy was accidentally pulled out by the patient. It was recommended to the patient tube thoracostomy. Risks associated with procedure were discussed with the patient and the patient's daughter in detail include, but not limited to bleeding, infection, deep vein thrombosis, resultant pulmonary embolism, perioperative cardiac and respiratory morbidity and mortality, injury to the lung, resultant possibly permanent air leak, need for emergent thoracotomy [facility] at [facility], and incomplete resolution of the patient's symptomatology. All questions were answered and informed consent was obtained. FINDINGS: On fluoroscopy, the chest tube appeared to be in the apex of the right hemithorax. The lung appeared reexpanded. Stat portable chest x-ray postprocedure is pending at the time of this report. PROCEDURE IN DETAIL: SAMMY JOLLEY was taken to the operative suite at [facility] and placed in supine position. Monitored anesthesia care was begun. -sided chest was sterilely prepped and draped in usual fashion. All members of surgical team were in agreement of correct the patient and correct procedure. The area was infiltrated with local anesthetic at the 5th intercostal space, subcutaneous tissue, and skin. Air was aspirated over the surface of the superior aspect of the 6th rib. A transverse incision was made at the 6th intercostal space at the skin level. It was tunneled bluntly and over the top of the 6th rib into the 5th intercostal space. The muscle was split. There was immediate return of reveles of air. Chest tube was inserted without resistance, and utilizing fluoroscopic guidance appeared to be in the lateral position and extending to the apex of the right hemithorax. This was to approximately 18 centimeters and sutured in place. Under fluoroscopy, the most proximal hole in the chest tube was identified within the thoracic cavity. It sutured in place with 0 silk suture and wrapped the chest tube itself. Sterile occlusive dressing was applied. Chest tube was taped to the chest wall, and a stat portable chest x-ray was obtained. The patient was taken to recovery, having tolerated his procedure well.
--- NOTE | 2016-12-09 17:01 | DIRPT ---
CLINICAL DATA: Postop thoracostomy EXAM: PORTABLE CHEST 1 VIEW COMPARISON: 12/09/2016 neck 1458 hours FINDINGS: Interval placement of RIGHT chest tube with re-expansion of the RIGHT lung. Subcutaneous gas along the RIGHT chest wall. RIGHT basilar atelectasis. No mediastinal shift. LEFT lung relatively clear. IMPRESSION: Expansion of RIGHT lung following chest tube placement. No appreciable pneumothorax. No mediastinal shift. Electronically Signed By: Ras Radford M.D. On: 12/09/2016 16:58
[2016-12-09] MEDS: Aluminum;Magnesium;Simethicone 30 ML UDC PO PRN (18:04)
[2016-12-09] MEDS: HYDROmorphone 50 ML IV PRN (19:23)
[2016-12-09] MEDS: NICOTINE 14 MG PATCH TOP SCH (21:09)
[2016-12-10] MEDS: LR 1,000 ML IV SCH ×3 (00:04→21:18)
[2016-12-10] MEDS: Albuterol/Ipratropium Neb 3 ML NEB NEB SCH ×4 (01:59→19:50)
[2016-12-10] MEDS: PANTOPRAZOLE 40 MG TAB PO SCH (05:33)
[2016-12-10] MEDS: SODIUM CHLORIDE 0.9% 3 ML FLUSH FLUSH SCH ×2 (05:34→17:09)
--- NOTE | 2016-12-10 06:13 | SC.ANESPOS ---
Post-Anesthesia Note LOC: Fully Awake Post-Anesthesia Assessment: Awake, Returned to Baseline, Hemodynamically Stable , Pain Control Adequate Phase I & II Recovery Complete: Yes Apparent Anesthesia Complication: No : N PACU Discharge Time: 17:35 - Vital Signs Blood Pressure: 138/81 Pulse: 81 Resp Rate: 20 O2 Sat: 97 Temp: 98.4 F - Comments Anesthesia Discharge Time Report Time 17:35
[2016-12-10] MEDS: BUDESONIDE 0.5 MG NEB NEB SCH ×2 (07:35→19:52)
[2016-12-10] MEDS: PREDNISONE 10 MG PO SCH ×4 (07:48→21:18)
[2016-12-10] MEDS: Aluminum;Magnesium;Simethicone 30 ML UDC PO PRN (07:50)
--- NOTE | 2016-12-10 10:11 | DIRPT ---
CLINICAL DATA: Right tube thoracostomy EXAM: PORTABLE CHEST 1 VIEW COMPARISON: Chest x-rays dated 12/09/2016. FINDINGS: Right-sided chest tube appears well positioned with tip directed towards the medial lung apex. No residual pneumothorax seen. Subcutaneous emphysema again noted along the right lateral chest wall. Heart size is upper normal, stable. Overall cardiomediastinal silhouette is stable in size and configuration. Probable mild atelectasis and/or edema at the right lung base. Lungs otherwise clear. IMPRESSION: Right-sided chest tube in place with tip directed towards the medial lung apex. No residual pneumothorax seen. Probable mild atelectasis and/or edema at the right lung base. Electronically Signed By: Homero Dallas M.D. On: 12/10/2016 10:08
--- NOTE | 2016-12-10 11:29 | PCM.SURGRO ---
- Subjective Chief Complaint: Feels better Post Op Day: 1 (right tube thoracostomy) Patient: Reports: Pain is less, Tolerating Regular Diet, Voiding without difficulty, Flatus, Afebrile, Other (has been up to bedside commode). Denies: Nausea, Vomiting, Shortness of breath - Objective / Physical Exam Vital Signs: Temperature: 98.7 F (12/10/16 10:00) HR: 86 (12/10/16 10:00)RR: 18 (12/10/16 10: 00) BP: 118/70 (12/10/16 10:00)Pulse Ox: 94 (12/10/16 10:00) General: Alert, Oriented x3, Cooperative, No acute distress HEENT: Mucous membr. moist/pink Respiratory: Normal - CTA, Wheezes, Other (Chest tube patent. There is a small persistent air leak.) Cardiovascular: Regular rate and rhythm Gastrointestinal: Soft, Bowel Sounds. negative: Distended, Tender Extremities: negative: Swelling, Edema Psych/Mental Status: Appropriate, Normal Affect, Cooperative. negative: Agitated, Anxious Neurological: Normal speech Skin: No rashes Lymphatics: Normal Laboratory/Diagnostics Reviewed: Final Report CLINICAL DATA: Right tube thoracostomy EXAM: PORTABLE CHEST 1 VIEW COMPARISON: Chest x-rays dated 12/09/2016. FINDINGS: Right-sided chest tube appears well positioned with tip directed towards the medial lung apex. No residual pneumothorax seen. Subcutaneous emphysema again noted along the right lateral chest wall. Heart size is upper normal, stable. Overall cardiomediastinal silhouette is stable in size and configuration. Probable mild atelectasis and/or edema at the right lung base. Lungs otherwise clear. IMPRESSION: Right-sided chest tube in place with tip directed towards the medial lung apex. No residual pneumothorax seen. Probable mild atelectasis and/or edema at the right lung base. Electronically Signed By: Homero Dallas M.D. On: 12/10/2016 10:08 - Assessment and Plan (1) Spontaneous pneumothorax Acute J93.83 - OTHER PNEUMOTHORAX Present on Admission: Yes Comment/Plan: The right tube thoracostomy is in place. The patient continues to have an air leak. If this persists, we will plan for referral to cardiothoracic surgery for consideration for VATS. I discussed the treatment plan at length with the patient. All questions were answered. We will hold DVT pharmacologic prophylaxis at this time as there is risk of bleeding at the surgical site. (2) Tobacco abuse Chronic Z72.0 - TOBACCO USE Present on Admission: Yes Comment/Plan: This will increase the risk of periprocedural complications. (3) COPD exacerbation Chronic J44.1 - CHRONIC OBSTRUCTIVE PULMONARY DISEASE W (ACUTE) EXACERBATION Present on Admission: Yes Comment/Plan: Home medications have been restarted. - Review of Systems Yes All systems reviewed and were negative except as marked (twelve systems reviewed)
[2016-12-10] MEDS: NICOTINE 14 MG PATCH TOP SCH (21:19)
[2016-12-11] MEDS: Albuterol/Ipratropium Neb 3 ML NEB NEB SCH ×4 (01:58→21:34)
[2016-12-11] MEDS: PANTOPRAZOLE 40 MG TAB PO SCH (05:40)
[2016-12-11] MEDS: SODIUM CHLORIDE 0.9% 3 ML FLUSH FLUSH SCH ×2 (05:41→16:55)
[2016-12-11] MEDS: BUDESONIDE 0.5 MG NEB NEB SCH ×2 (07:48→21:35)
[2016-12-11] MEDS: PREDNISONE 10 MG PO SCH ×4 (08:16→21:26)
[2016-12-11] MEDS: LR 1,000 ML IV SCH ×2 (09:09→21:24)
--- NOTE | 2016-12-11 11:15 | DIRPT ---
CLINICAL DATA: Check right chest tube EXAM: PORTABLE CHEST 1 VIEW COMPARISON: 12/10/2016 FINDINGS: Right chest tube is again identified. The proximal side port is noted at the internal level of the chest wall. No pneumothorax is noted. Right basilar atelectasis is again seen and stable. Minimal left basilar atelectasis is noted as well. IMPRESSION: No pneumothorax. Stable right basilar changes. New minimal left atelectasis. Electronically Signed By: Cedrick Maloney M.D. On: 12/11/2016 11:12
[2016-12-11] MEDS ORDERED: LORAZEPAM 2 MG/ML VIAL IV PRN (12:09)
[2016-12-11] MEDS: Aluminum;Magnesium;Simethicone 30 ML UDC PO PRN (12:10)
--- NOTE | 2016-12-11 16:17 | PCM.SURGRO ---
- Subjective Chief Complaint: feels better Post Op Day: 2 (right tube thoracostomy) Patient: Reports: Feels better, Pain is less, Tolerating Regular Diet, Voiding without difficulty, Flatus, Afebrile, Other (Mildly productive cough). Denies: Nausea, Vomiting, Shortness of breath - Objective / Physical Exam Vital Signs: Temperature: 97.7 F (12/11/16 13:37) HR: 95 (12/11/16 13:37)RR: 18 (12/11/16 13: 37) BP: 142/73 (12/11/16 13:37)Pulse Ox: 92 (12/11/16 13:37) General: Alert, Oriented x3, Cooperative, No acute distress HEENT: Normal Respiratory: Normal - CTA, Other (tube is patent, small air leak noted.) Cardiovascular: Regular rate and rhythm Gastrointestinal: Soft, Bowel Sounds. negative: Distended, Tender Back: Normal Extremities: negative: Swelling, Edema Psych/Mental Status: Appropriate, Normal Affect, Cooperative. negative: Agitated, Anxious Neurological: Normal speech Skin: No rashes Lymphatics: Normal - Assessment and Plan (1) Spontaneous pneumothorax Acute J93.83 - OTHER PNEUMOTHORAX Present on Admission: Yes Comment/Plan: The patient appears to continue to have an air leak. We will continue suction and reexamine. If the air leak persists, we will plan for transfer to tertiary care center for consideration for VATS. I discussed the treatment plan with the patient and the patient's parents. All questions were answered. They voiced understanding and agreement. (2) Tobacco abuse Chronic Z72.0 - TOBACCO USE Present on Admission: Yes Comment/Plan: This will increase the risk of periprocedural complications. (3) COPD exacerbation Chronic J44.1 - CHRONIC OBSTRUCTIVE PULMONARY DISEASE W (ACUTE) EXACERBATION Present on Admission: Yes Comment/Plan: Home medications have been started.
[2016-12-11] MEDS: HYDROmorphone 50 ML IV PRN (21:21)
[2016-12-11] MEDS: NICOTINE 14 MG PATCH TOP SCH (21:25)
[2016-12-12] MEDS: Albuterol/Ipratropium Neb 3 ML NEB NEB SCH ×4 (01:44→19:16)
[2016-12-12] MEDS: PANTOPRAZOLE 40 MG TAB PO SCH (05:31)
[2016-12-12] MEDS: SODIUM CHLORIDE 0.9% 3 ML FLUSH FLUSH SCH ×2 (05:31→16:40)
[2016-12-12] MEDS: BUDESONIDE 0.5 MG NEB NEB SCH ×2 (07:55→19:19)
--- NOTE | 2016-12-12 08:47 | PCM.SURGRO ---
- Subjective Chief Complaint: right pneumothorax Post Op Day: 3 (right tube thoracostomy) Patient: Reports: Feels better, Pain is less (patient denies any significant pain), Tolerating Regular Diet, Voiding without difficulty, Flatus, Afebrile, Other (sitting up in bed eating breakfast). Denies: Nausea, Vomiting, Shortness of breath - Objective / Physical Exam Vital Signs: Temperature: 97.5 F (12/12/16 06:00) HR: 80 (12/12/16 07:42)RR: 20 (12/12/16 06: 00) BP: 140/62 (12/12/16 06:00)Pulse Ox: 97 (12/12/16 07:56) General: Alert, Oriented x3, Cooperative, No acute distress HEENT: Normal, Anicteric Sclera, Mucous membr. moist/pink Respiratory: Normal - CTA, Other (chest tube is patent. no air leak noted.) Cardiovascular: Regular rate and rhythm Gastrointestinal: Soft, Bowel Sounds. negative: Distended, Tender, Guarding, Firm, Rigid Extremities: negative: Swelling, Edema Psych/Mental Status: Appropriate, Normal Affect, Cooperative. negative: Agitated, Anxious Neurological: Normal speech Skin: Warm,Dry and Intact, No rashes - Assessment and Plan (1) Spontaneous pneumothorax Acute J93.83 - OTHER PNEUMOTHORAX Present on Admission: Yes Comment/Plan: The patient is postoperative day #3 right tube thoracostomy. There is no apparent air leak identified on examination today. We will place the chest tube on water seal and obtain x ray today and tomorrow morning. We will monitor closely. If there is recurrent air leak or pneumothorax, the patient will require transfer to a tertiary care center for consideration for possible VATS. This plan was discussed with the patient at length. All questions were answered. (2) Tobacco abuse Chronic Z72.0 - TOBACCO USE Present on Admission: Yes Comment/Plan: The patient has been counseled in tobacco cessation. (3) COPD exacerbation Chronic J44.1 - CHRONIC OBSTRUCTIVE PULMONARY DISEASE W (ACUTE) EXACERBATION Present on Admission: Yes
[2016-12-12] MEDS: PREDNISONE 10 MG PO SCH ×4 (10:03→21:41)
--- NOTE | 2016-12-12 12:46 | DIRPT ---
CLINICAL DATA: Right tube thoracostomy. EXAM: PORTABLE CHEST 1 VIEW COMPARISON: 12/11/2016 FINDINGS: Right-sided chest tube is unchanged in position. No pneumothorax. Bibasilar atelectasis is noted, stable in appearance. Suspect right basilar pneumothorax. Heart size is normal. No pulmonary edema. IMPRESSION: 1. Suspect small right basilar pneumothorax. 2. Bibasilar atelectasis. Electronically Signed By: Ashley Baez M.D. On: 12/12/2016 12:44
[2016-12-12] MEDS: LR 1,000 ML IV SCH ×2 (14:00→20:17)
[2016-12-12] MEDS: Aluminum;Magnesium;Simethicone 30 ML UDC PO PRN (18:39)
[2016-12-12] MEDS ORDERED: MAGNESIUM HYDROXIDE 30 ML BOTTLE PO ONE (19:25)
[2016-12-12] MEDS ORDERED: BISACODYL 10 MG SUPP PR ONE (19:26)
[2016-12-12] MEDS: NICOTINE 14 MG PATCH TOP SCH (21:40)
[2016-12-13] MEDS: Albuterol/Ipratropium Neb 3 ML NEB NEB SCH ×4 (02:40→20:43)
[2016-12-13] MEDS: SODIUM CHLORIDE 0.9% 3 ML FLUSH FLUSH SCH ×2 (05:18→17:12)
[2016-12-13] MEDS: PANTOPRAZOLE 40 MG TAB PO SCH (05:18)
--- NOTE | 2016-12-13 07:40 | DIRPT ---
CLINICAL DATA: Right tube thoracostomy. EXAM: PORTABLE CHEST 1 VIEW COMPARISON: 12/12/2016 FINDINGS: Right-sided chest tube remains in place. Soft tissue emphysema in the right chest wall has slightly decreased. No definite pneumothorax is identified, although a small right basilar pneumothorax is not completely excluded as questioned on the prior study. Right basilar atelectasis has mildly increased. Left basilar atelectasis has not significantly changed. The no sizable pleural effusion is seen. IMPRESSION: 1. No definite pneumothorax identified, although a small right basilar pneumothorax is not completely excluded as questioned on the prior study. 2. Bibasilar atelectasis, mildly increased on the right. Electronically Signed By: Keny Donahue M.D. On: 12/13/2016 07:37
[2016-12-13] MEDS: BUDESONIDE 0.5 MG NEB NEB SCH ×2 (07:55→20:44)
[2016-12-13] MEDS: PREDNISONE 10 MG PO SCH ×4 (08:12→21:55)
[2016-12-13] MEDS: LR 1,000 ML IV SCH ×2 (11:48→21:53)
--- NOTE | 2016-12-13 16:33 | PCM.SURGRO ---
- Subjective Chief Complaint: wants to go home Post Op Day: 4 (right tube thoracostomy) Patient: Reports: Feels better (The patient denies chest pain, shortness of breath or difficulty breathing.), Tolerating Regular Diet, Voiding without difficulty, Flatus, Bowel Movement, Afebrile, Other (sitting up in bed). Denies : Nausea, Vomiting, Shortness of breath - Objective / Physical Exam Vital Signs: Temperature: 98.5 F (12/13/16 15:02) HR: 81 (12/13/16 15:02)RR: 17 (12/13/16 16: 00) BP: 114/59 (12/13/16 15:02)Pulse Ox: 95 (12/13/16 15:02) General: Alert, Oriented x3, Cooperative, No acute distress HEENT: Normal, Mucous membr. moist/pink Respiratory: Normal - CTA, Other (No air leak. Tube is patent.) Cardiovascular: Regular rate and rhythm Gastrointestinal: Soft, Bowel Sounds. negative: Distended, Tender Extremities: negative: Swelling, Edema Psych/Mental Status: Appropriate, Normal Affect, Cooperative. negative: Agitated, Anxious Neurological: Normal speech Skin: Warm,Dry and Intact, No rashes Lymphatics: Normal Laboratory/Diagnostics Reviewed: Final Report CLINICAL DATA: Right tube thoracostomy. EXAM: PORTABLE CHEST 1 VIEW COMPARISON: 12/12/2016 FINDINGS: Right-sided chest tube remains in place. Soft tissue emphysema in the right chest wall has slightly decreased. No definite pneumothorax is identified, although a small right basilar pneumothorax is not completely excluded as questioned on the prior study. Right basilar atelectasis has mildly increased. Left basilar atelectasis has not significantly changed. The no sizable pleural effusion is seen. IMPRESSION: 1. No definite pneumothorax identified, although a small right basilar pneumothorax is not completely excluded as questioned on the prior study. 2. Bibasilar atelectasis, mildly increased on the right. Electronically Signed By: Keny Donahue M.D. On: 12/13/2016 07:37 - Assessment and Plan (1) Spontaneous pneumothorax Acute J93.83 - OTHER PNEUMOTHORAX Present on Admission: Yes Comment/Plan: The patient does not appear to have an air leak. We will plan to continue water seal and repeat chest x ray in the morning. If there is no pneumothorax, we will plan for removal of the right tube thoracostomy with repeat chest x ray afterward. If there is recurrent pneumothorax, we will plan for referral to a tertiary care center for consideration for VATS. Dr. Almaguer will see the patient beginning on 12/14/16. (2) Tobacco abuse Chronic Z72.0 - TOBACCO USE Present on Admission: Yes Comment/Plan: This will increase the risk of periprocedural complications. (3) COPD exacerbation Chronic J44.1 - CHRONIC OBSTRUCTIVE PULMONARY DISEASE W (ACUTE) EXACERBATION Present on Admission: Yes Comment/Plan: The patient's home medications have been restarted.
[2016-12-13] MEDS: NICOTINE 14 MG PATCH TOP SCH (21:57)
[2016-12-14] MEDS: LR 1,000 ML IV SCH ×2 (00:10→12:52)
[2016-12-14] MEDS: Albuterol/Ipratropium Neb 3 ML NEB NEB SCH ×3 (01:45→14:01)
[2016-12-14] MEDS: SODIUM CHLORIDE 0.9% 3 ML FLUSH FLUSH SCH ×2 (05:25→16:46)
[2016-12-14] MEDS: PANTOPRAZOLE 40 MG TAB PO SCH (05:25)
--- NOTE | 2016-12-14 07:23 | DIRPT ---
CLINICAL DATA: Right-sided thoracostomy tube EXAM: PORTABLE CHEST 1 VIEW COMPARISON: 12/13/2016; 12/12/2016; 12/11/2016; 12/09/2016 FINDINGS: Grossly unchanged cardiac silhouette and mediastinal contours. Stable position of support apparatus with side port of right-sided chest tube regional to the right lateral chest wall. No pneumothorax. The amount of right lateral chest wall subcutaneous emphysema is grossly unchanged. Minimally improved aeration of the right lower lung. Persistent bibasilar opacities favored to represent atelectasis. No new focal airspace opacities. No evidence of edema. No definite effusion. No acute osseus abnormalities. IMPRESSION: 1. Stable position of right-sided chest tube with side port again projected regional to the right lateral chest wall. No pneumothorax. 2. Minimally improved aeration of lungs with persistent bibasilar atelectasis. No new focal airspace opacities. Electronically Signed By: Guille Cárdenas M.D. On: 12/14/2016 07:20
[2016-12-14] MEDS: BUDESONIDE 0.5 MG NEB NEB SCH (08:01)
[2016-12-14] MEDS: PREDNISONE 10 MG PO SCH ×3 (08:12→16:46)
--- NOTE | 2016-12-14 11:58 | PCM.DCS92 ---
- Final/Secondary Discharge Diagnosis (1) Spontaneous pneumothorax Resolved J93.83 - OTHER PNEUMOTHORAX Present on Admission: Yes Plan/Goal/Comment: Chest tube was placed initially. The initial chest tube fell out and a replacement chest tube was put in. Ultimately this chest tube showed re- expansion of the lung. Water-seal was induced and ultimately this chest tube was removed and there is no pneumothorax status post chest tube removal. The patient was deemed stable candidate for discharge home. She was to avoid airline flying, mountain climbing, scuba diving, or any other change in pressure. Smoking cessation was highly recommended. Discharge Disposition: Home Discharge Condition: Stable Cognitive Discharge Status: Unimpaired Fuctional Discharge Status: Independent Physician Follow up/Referrals: Yousif Peres DO [Staff Physician] - Two Weeks Home Medications/ New Prescriptions: New Oxycodone Immediate Release [Oxy-Ir] 5 mg PO Q4H PRN #40 tab PRN Reason: Pain Promethazine HCl [Phenergan] 12.5 mg PO Q6 PRN #30 tablet PRN Reason: Nausea/Vomiting Continue Albuterol/Ipratropium Neb [Duoneb] 3 ml NEB Q6H PRN #1 box PRN Reason: Shortness Of Breath Omeprazole [Prilosec] 20 mg PO DAILY Albuterol Sulfate [Proventil Hfa] 2 puff INH Q2H PRN #1 inhaler PRN Reason: Wheezing Prednisone [Sterapred DS 10 mg/12 day pack] 48 tab PO DIR #1 pack Fluticasone/Vilanterol [Breo Ellipta 200-25 Mcg INH] 1 DAILY Diet at Discharge: Regular Activity: No Heavy Lifting, No Driving Call Office For: Worsening Symptoms Discontinue use of:: Alcohol, All Illegal Substances, All Types of Tobacco - DC Summary Notes Hospital Course Note:: Discharge summary on patient named SAMMY JOLLEY admitted to [facility] on 12/07/16 by Yousif Peres DO. Date of discharge is 12/14/2016. Patient had a spontaneous pneumothorax which chest tube was placed. Reportedly the chest tube came out. Patient required reinserted in the chest tube. She had a persistent air leak but slowly over time this resolved. There is suggestion of a basal lateral pneumothorax but this appeared to resolve radiographically as well. Ultimately the chest tube was placed to water seal and the patient had no further air leak nor any further pneumothorax by radiographic imaging. On to 12/14/2016 the chest tube was removed. Chest x-ray status post chest tube removal showed no pneumothorax. The patient was deemed stable candidate for discharge home. Discharge instructions were discussed. Please see the electronic medical record discharge summary for details. Patient was to follow up in the office. All questions were answered. Patient was subsequently discharged in stable condition.. Wound Care Surgical Site: Yes Site Description (if applicable): Right chest May Shower Starting:: In 48 hours Remove Gauze Dressing in How Many Days?: In 48 hours Ability To Perform Care (if applicable): Yes - Physical Exam Vital Signs: Initial Vitals Temperature 98.2 F 12/07/16 16:07 Pulse Rate 102 12/07/16 16:07 Respiratory Rate 18 12/07/16 16:07 Blood Pressure 154/79 12/07/16 16:07 Pulse Oxygen Saturation 96 12/07/16 16:07 Constitutional: No apparent distress Respiratory: Diminished (On the right) Cardiovascular: Normal - GI Auscultation: Normal Palpation: Normal Tenderness: Non tender
[2016-12-14] MEDS ORDERED: SODIUM CHLORIDE 0.9% 3 ML FLUSH FLUSH SCH (12:00)
[2016-12-14 14:19] VITALS: BP 125/60; PULSE 90; TEMP 98.6
--- NOTE | 2016-12-14 15:35 | DIRPT ---
CLINICAL DATA: Status post chest tube removal appear EXAM: CHEST 2 VIEW COMPARISON: Chest x-ray from earlier same day. FINDINGS: Right-sided chest tube has been removed. No recurrent pneumothorax seen. Stable subcutaneous emphysema along the right lateral chest wall. Stable linear atelectasis within the left mid lung region. Probable mild atelectasis at the right lung base. No pleural effusion seen. Lung volumes are normal. Cardiomediastinal silhouette is stable in size and configuration. IMPRESSION: Status post right-sided chest tube removal. No pneumothorax seen. Electronically Signed By: Homero Dallas M.D. On: 12/14/2016 15:32
[2016-12-14] MEDS: NICOTINE 14 MG PATCH TOP SCH (16:47)
[2016-12-15] MEDS ORDERED: PREDNISONE 10 MG PO SCH (07:30)
== END 2016-12-14 16:51 | disposition home or self-care (01) | DRG 200 ==
LOC: ED 16:05 → MPS3 21:13
PROVIDERS: ADMIT Surgery; ATTEND Surgery
PROC: 0W9930Z Drainage of Right Pleural Cavity with Drainage Device, Percutaneous Approach (ICD-10-PCS; principal; 2016-12-07)
PROC: 0W9930Z Drainage of Right Pleural Cavity with Drainage Device, Percutaneous Approach (ICD-10-PCS; 2016-12-09)
DX: J93.83 Other pneumothorax (principal); J44.1 Chronic obstructive pulmonary disease with (acute) exacerbation; J45.909 Unspecified asthma, uncomplicated; K21.9 Gastro-esophageal reflux disease without esophagitis; K58.9 Irritable bowel syndrome, unspecified; I25.2 Old myocardial infarction; Z85.820 Personal history of malignant melanoma of skin; Z98.51 Tubal ligation status; Z88.2 Allergy status to sulfonamides; Z79.51 Long term (current) use of inhaled steroids; Z72.0 Tobacco use
CPT/HCPCS: 32551; 36415; 71010; 71020; 71250; 80053; 81001; 85007; 85027; 94640; 96372; 96374; 96375; 99152; 99284; 99406; G0237; J0690; J1170; J2001; J2060; J2250; J2310; J2405; J2930; J3010; J3490; J7620